=== PATIENT | male | born 1965 ===

== ENCOUNTER → 2020-08-20 | Outpatient (CLI) | payer BC, OTHER ==
[~2020-08-20] MED LIST: CETI10TA76 PO; CHOL10003 PO; GLIM4TAB8 PO; LEVO50TA5 PO; LISI40TA PO; METF500T17 PO; PIOG15TA69 PO; PRAV10TA2 PO; TRAM50TA2 PO
[2020-08-20 09:02] LABS: BASOPHILS % (AUTO) 1 % (0-1); EOSINOPHILS % (AUTO) 13 % (1-7); LYMPHOCYTES % (AUTO) 30 % (22-44); MEAN CORPUSCULAR HEMOGLOBIN 34.7 pg (27.5-34.5); MEAN CORPUSCULAR HGB CONC 34.4 g/dL (33.2-36.2); MEAN PLATELET VOLUME 8.6 fL (7.4-10.4); MONOCYTES % (AUTO) 8 % (2-9); NEUTROPHILS % (AUTO) 48 % (42-75); PLATELET COUNT 152 x10^3/uL (130-400); RED BLOOD COUNT 4.24 x10^6/uL (4.38-5.82); RED CELL DISTRIBUTION WIDTH 13.2 % (9.4-14.8)
[2020-08-20 09:08] LABS: MD NO
[2020-08-20 09:12] LABS: INTERNATIONAL NORMALIZED RATIO 0.98 (0.93-1.1); PROTHROMBIN TIME 10.4 Seconds (9.6-11.5)
[2020-08-20 09:13] LABS: ALANINE AMINOTRANSFERASE 61 U/L (12-78); ALBUMIN 3.8 g/dL (3.4-5.0); ANION GAP 3 mmol/L (5-15); CALCIUM 8.5 mg/dL (8.5-10.1); CHLORIDE 113 mmol/L (98-107); CREATININE 0.72 mg/dL (0.7-1.3)
[2020-08-20 09:16] LABS: ALKALINE PHOSPHATASE 202 U/L (45-117); BILIRUBIN,TOTAL 0.4 mg/dL (0.2-1.0); TOTAL PROTEIN 7.5 g/dL (6.4-8.2)
== END | disposition home or self-care (01) ==
LOC: STAR 07:49
PROVIDERS: ATTEND Orthopaedic Surgery
DX: Z01.810 Encounter for preprocedural cardiovascular examination (principal); Z01.818 Encounter for other preprocedural examination; M17.12 Unilateral primary osteoarthritis, left knee; M25.561 Pain in right knee; Z79.01 Long term (current) use of anticoagulants
CPT/HCPCS: 80053; 83036; 85025; 85610; 85730; 87081; 87635; 93005

== ENCOUNTER 2020-08-26 10:22 | Day surgery (SDC) | payer BC, OTHER ==
[~2020-08-26] VITALS: Ht 177.8 cm; Wt 116.5 kg
[~2020-08-26 10:22] MED LIST changes: +ACETAMINOPHEN 650 MG/20.3 ML UDC PO PRN; +BISACODYL 10 MG SUPP PR PRN; +CEFAZOLIN PMX 2GM/50ML 50 ML IVPB SCH; +DIPHENHYDRAMINE 50 MG CAPSULE PO PRN; +DOCUSATE 100 MG CAPSULE PO SCH; +EPINEPHRINE 1 MG/ML, 1ML ONE; +GLIMEPIRIDE 4 MG TABLET PO SCH; +HYDROcodone/APAP 5/325 TABLET PO PRN; +HYDROmorphone 1 MG/ML, 1ML INJ IV PRN; +INSULIN LISPRO 100 UNITS/ML, PEN SQ-INSULIN SCH; +KETOROLAC 60 MG/2 ML ONE; +LEVOTHYROXINE 50 MCG TABLET PO SCH; +MAGNESIUM HYDROXIDE 8%, 30ML UDC PO PRN; +NS + 20MEQ KCL 1,000 ML IV SCH; +ONDANSETRON 2MG/ML, 2ML IV PRN; +ONDANSETRON 4 MG TABLET PO PRN; +OXYcodone IR 5MG TABLET PO PRN; +ROPIvacaine/PF 0.5%, 20 ML ONE; +ROPIvacaine/PF 0.5%, 30 ML ONE; +SENNA/DOCUSATE TABLET PO PRN; +SODIUM CHLORIDE 0.9% 50 ML ONE; +TRANEXAMIC ACID 100 MG/ML, 10ML ONE; +VANCOMYCIN 1,000 MG ONE; +ZOLPIDEM 5MG TABLET PO PRN; +metFORMIN 500 MG TABLET PO SCH
[2020-08-26] MEDS ORDERED: ASPI81TA45 PO (10:48)
[2020-08-26] MEDS ORDERED: GABAPENTIN 300 MG CAPSULE PO ONE (11:00)
[2020-08-26] MEDS ORDERED: LACTATED RINGERS 1,000 ML IV SCH (11:00)
[2020-08-26] MEDS ORDERED: ACETAMINOPHEN 500 MG TABLET PO ONE (11:00)
[2020-08-26] MEDS ORDERED: CHLORHEXIDINE 15 ML UDC MM ONE (11:00)
[2020-08-26] MEDS ORDERED: GABAPENTIN 300 MG CAPSULE ONE (11:09)
[2020-08-26] MEDS ORDERED: ACETAMINOPHEN 500 MG TABLET ONE (11:09)
[2020-08-26] MEDS ORDERED: CHLORHEXIDINE 15 ML UDC ONE (11:10)
[2020-08-26] MEDS ORDERED: MIDAZOLAM 1 MG/ML, 2ML ONE (12:07)
[2020-08-26] MEDS ORDERED: FENTANYL PF 250 MCG/5ML ONE ×2 (12:07→14:33)
[2020-08-26] MEDS ORDERED: KETAMINE 10 MG/ML, 20ML ONE (14:15)
[2020-08-26] MEDS ORDERED: PROPOFOL 10 MG/ML, 20ML ONE (14:15)
[2020-08-26] MEDS ORDERED: ONDANSETRON 2MG/ML, 2ML ONE (14:15)
[2020-08-26] MEDS ORDERED: SUCCINYLCHOLINE 20 MG/ML, 10ML ONE (14:15)
[2020-08-26] MEDS ORDERED: DEXAMETHASONE 4 MG/ML, 1ML ONE (14:15)
[2020-08-26] MEDS ORDERED: CEFAZOLIN 1,000 MG ONE (14:15)
[2020-08-26] MEDS ORDERED: ROCURONIUM 10 MG/ML,10ML ONE (14:15)
[2020-08-26] MEDS ORDERED: ONDANSETRON 2MG/ML, 2ML IVPush PRN (15:00)
[2020-08-26] MEDS ORDERED: PROMETHAZINE 25 MG/ML, 1ML IVPush PRN (15:00)
[2020-08-26] MEDS ORDERED: EPHEDRINE 50 MG/ML, 1ML IVPush PRN (15:00)
[2020-08-26] MEDS ORDERED: LORazepam 2 MG/ML, 1ML IVPush PRN (15:00)
[2020-08-26] MEDS ORDERED: OXYcodone 5 MG/5 ML ORAL.SOL UDC PO PRN (15:00)
[2020-08-26] MEDS ORDERED: LABETALOL 5MG/ML, 20ML IV PRN (15:00)
[2020-08-26] MEDS ORDERED: FENTANYL PF 100 MCG/2ML IV PRN (15:00)
[2020-08-26] MEDS ORDERED: MEPERIDINE/PF 25MG/0.5ML IVPush PRN (15:00)
[2020-08-26] MEDS ORDERED: hydrALAzine 20 MG/ML, 1ML IV PRN (15:00)
[2020-08-26] MEDS ORDERED: HALOPERIDOL 5 MG/ML IV PRN (15:00)
[2020-08-26] MEDS ORDERED: ACETAMINOPHEN 325 MG TABLET PO PRN (15:00)
[2020-08-26] MEDS ORDERED: METHOCARBAMOL 1,000 MG in DEXTROSE 5% 100 ML IV PRN (15:00)
[2020-08-26] MEDS ORDERED: HYDROmorphone 1 MG/ML, 1ML INJ IVPush PRN (15:00)
[2020-08-26] MEDS ORDERED: OXYcodone 5 MG/5 ML ORAL.SOL UDC ONE (16:31)
[2020-08-26] MEDS ORDERED: ASPIRIN 81 MG TABLET EC PO SCH (18:00)
== END 2020-08-26 18:42 | disposition home or self-care (01) ==
LOC: OUT 10:22
PROVIDERS: ATTEND Orthopaedic Surgery
DX: M17.12 Unilateral primary osteoarthritis, left knee (principal); M25.762 Osteophyte, left knee; M21.162 Varus deformity, not elsewhere classified, left knee; G89.18 Other acute postprocedural pain; I10 Essential (primary) hypertension; E11.9 Type 2 diabetes mellitus without complications; F17.200 Nicotine dependence, unspecified, uncomplicated; Z79.1 Long term (current) use of non-steroidal anti-inflammatories (NSAID); Z79.891 Long term (current) use of opiate analgesic; Z79.899 Other long term (current) drug therapy
CPT/HCPCS: 27447; 64447; 82962; 97110; 97161; 97165; C1713; C1776; J0171; J0330; J0690; J1100; J1885; J2250; J2405; J2704; J2795; J3010; J3370